=== PATIENT | female | born 1990 | race Caucasian/White ===

== ENCOUNTER 2020-12-07 08:32 | Observation (INO) ==
[2020-12-07] MEDS ORDERED: Ringers Solution, Lactated 1,000 ML IVC SCH (09:15)
[2020-12-07 09:21] VITALS: BP 124/72
== END 2020-12-08 05:00 | disposition home or self-care (01) ==
LOC: 1NENULAB
PROVIDERS: ADMIT Obstetrics & Gynecology; ATTEND Obstetrics & Gynecology

== ENCOUNTER 2021-02-18 12:42 | Inpatient (IN) ==
[~2021-02-18 12:42] MED LIST: *HR* Labetalol 20 MG/4 ML SYRINGE IVP PRN; *HR* Nalbuphine 10 MG/ML AMPUL IV PRN; Azithromycin 500 MG in 0.9 % Sodium Chloride 250 ML IVPB ONE; Famotidine 20 MG/2 ML VIAL IVP PRN; Lidocaine 1% 20 ML MDV INFILT PRN; Metoclopramide 10 MG/2 ML VIAL IVP PRN; Naloxone 0.4 MG/ML INJ IVP PRN; Ondansetron 4 MG/2 ML VIAL IVP PRN
[2021-02-18] MEDS ORDERED: Ringers Solution, Lactated 1,000 ML ONE (12:45)
[2021-02-18] MEDS ORDERED: Ropivacaine/PF 0.2% 20 ML VIAL EP ONE (12:47)
[2021-02-18] MEDS ORDERED: EPHEDrine 50 MG/ML VIAL IVP PRN (12:47)
[2021-02-18] MEDS ORDERED: *HR* FentaNYL (PF) 100 MCG/2 ML VIAL EP ONE (12:47)
[2021-02-18 12:49] LABS: Basophils # 0.1 K/mcL (0.0-0.2); Basophils % 0.6 %; Eosinophils # 0.3 K/mcL (0.0-0.6); Eosinophils % 2.5 %; Hematocrit 33.4 % (35.3-44.9); Hemoglobin 10.4 g/dL (11.5-15.4); Immature Granulocytes % 1.7 % (0-4); Lymphocytes # 2.2 K/mcL (0.6-4.6); Lymphocytes % 19.9 %; Mean Corpuscular HGB Conc 31.1 g/dL (31.6-35.5); Mean Corpuscular Hemoglobin 24.6 pg (28.0-33.3); Mean Corpuscular Volume 79.1 fL (83.0-100.0); Monocytes # 0.6 K/mcL (0.0-1.3); Monocytes % 5.7 %; Neutrophils # 7.5 K/mcL (1.6-8.9); Nucleated Red Blood Cells 0.6 /100 WBC (0); Platelet Count 262 K/mcL (140-400); Red Blood Count 4.22 M/mcL (3.82-4.97); Red Cell Distribution Width 14.2 % (11.5-14.5); Segmented Neutrophils % 69.6 %; White Blood Count 10.8 K/mcL (4.3-11.1)
[2021-02-18] MEDS ORDERED: *HR* FentaNYL (PF) 250 MCG/5 ML VIAL ONE (12:53)
[2021-02-18] MEDS ORDERED: Ropivacaine/PF 0.2% 20 ML VIAL ONE (12:53)
[2021-02-18 13:01] LABS: Creatinine,Urine 19 mg/dL; Protein/Creatinine Ratio,Urine 6.58 mg/mg (0.00-0.20)
[2021-02-18] MEDS: Ringers Solution, Lactated 1,000 ML IVC SCH ×2 (13:01→21:44)
[2021-02-18 13:05] LABS: Alanine Aminotransferase 14 Units/L (7-52); Aspartate Amino Transferase 18 Units/L (13-39); BUN/Creatinine Ratio 18 (6-26); Blood Urea Nitrogen 14 mg/dL (6-20); Lactate Dehydrogenase 199 Units/L (140-271); eGFR For African Americans > 60 (> 60); eGFR For Non-African Americans > 60 (> 60)
[2021-02-18] MEDS ORDERED: miSOPROStoL 25 MCG TABLET PO PRN (13:15)
[2021-02-18] MEDS: Magnesium Sulf 20 gm/SW 500mL 20 GM/500 ML IV.SOLN IVC SCH ×2 (13:23→21:46)
[2021-02-18 14:25] LABS: Influenza A PCR Negative (Negative); Influenza B PCR Negative (Negative); Resp. Syncytial Virus PCR Negative (Negative)
[2021-02-18 14:26] LABS: SARS-CoV-2 by PCR (In House) Negative (Negative)
[2021-02-18] MEDS ORDERED: Calcium Gluconate 1,000 MG/10 ML VIAL IVP PRN (15:06)
[2021-02-18 15:09] LABS: Amphetamine Screen,Urine Negative ng/mL (Cutoff=1000); Barbiturate Screen,Urine Negative ng/mL (Cutoff=200); Benzodiazepines Screen,Urine Negative ng/mL (Cutoff=200); Cannabinoid Screen,Urine Negative ng/mL (Cutoff = 50); Cocaine Screen,Urine Negative ng/mL (Cutoff= 300); Opiate Screen,Urine Negative ng/mL (Cutoff=300); Phencyclidine Screen,Urine Negative ng/mL (Cutoff=25)
[2021-02-18] MEDS: Acetaminophen 325 MG TABLET PO PRN (15:56)
[2021-02-18] MEDS ORDERED: Gentamicin 380 MG in 0.9 % Sodium Chloride 100 ML IVPB ONE (19:07)
[2021-02-18] MEDS ORDERED: Clindamycin 900 MG/50 ML 900 MG/50 ML IV.SOLN IVPB ONE (19:07)
[2021-02-18] MEDS ORDERED: Metoclopramide 10 MG/2 ML VIAL IVP ONE (19:07)
[2021-02-18] MEDS ORDERED: Famotidine 20 MG/2 ML VIAL IVP ONE (19:07)
[2021-02-18] MEDS ORDERED: EPHEDrine 50 MG/ML VIAL ONE (19:55)
[2021-02-18] MEDS ORDERED: *HR* FentaNYL (PF) 100 MCG/2 ML VIAL ONE (20:05)
[2021-02-18] MEDS ORDERED: Oxytocin 20 units/ LR 1000 mL 20 UNIT/1,000 ML BAG IVC SCH (20:30)
[2021-02-18] MEDS: Epidural Premix (fent/bupiv) 110 ML EP SCH (21:47)
[2021-02-19] MEDS: Epidural Premix (fent/bupiv) 110 ML EP SCH ×3 (02:28→21:41)
[2021-02-19] MEDS: Ringers Solution, Lactated 1,000 ML IVC SCH ×2 (02:28→09:23)
[2021-02-19] MEDS: Acetaminophen 325 MG TABLET PO PRN ×2 (06:30→14:30)
[2021-02-19] MEDS: miSOPROStoL 25 MCG TABLET VG SCH ×2 (09:23→14:30)
[2021-02-19 11:15] LABS: Hematocrit 31.1 % (35.3-44.9); Hemoglobin 9.7 g/dL (11.5-15.4); Mean Corpuscular HGB Conc 31.2 g/dL (31.6-35.5); Mean Corpuscular Hemoglobin 24.5 pg (28.0-33.3); Mean Corpuscular Volume 78.5 fL (83.0-100.0); Mean Platelet Volume 11.4 fL (9.4-12.4); Platelet Count 233 K/mcL (140-400); Red Blood Count 3.96 M/mcL (3.82-4.97); Red Cell Distribution Width 14.6 % (11.5-14.5); White Blood Count 10.3 K/mcL (4.3-11.1)
[2021-02-19 11:44] LABS: Alanine Aminotransferase 13 Units/L (7-52); Aspartate Amino Transferase 16 Units/L (13-39); Uric Acid 8.2 mg/dL (2.3-7.6); eGFR For African Americans > 60 (> 60); eGFR For Non-African Americans > 60 (> 60)
[2021-02-19] MEDS ORDERED: Metoclopramide 10 MG/2 ML VIAL IVP STA (14:43)
[2021-02-19] MEDS ORDERED: Acetaminophen IV 1,000 MG/100 ML BAG IVPB ONE (14:43)
[2021-02-19] MEDS: Magnesium Sulf 20 gm/SW 500mL 20 GM/500 ML IV.SOLN IVC SCH (15:19)
[2021-02-19] MEDS ORDERED: *HR* Labetalol 20 MG/4 ML SYRINGE IVP ONE (20:01)
[2021-02-20] MEDS ORDERED: Ondansetron 4 MG/2 ML VIAL ONE (01:08)
[2021-02-20] MEDS ORDERED: Chloroprocaine/PF 20 ML VIAL INFILT ONE (01:08)
[2021-02-20] MEDS ORDERED: Clindamycin 900 MG/50 ML 900 MG/50 ML IV.SOLN IVPB ONE (01:19)
[2021-02-20] MEDS ORDERED: Gentamicin 380 MG in 0.9 % Sodium Chloride 100 ML IVPB ONE (01:19)
[2021-02-20] MEDS ORDERED: Metoclopramide 10 MG/2 ML VIAL IVP ONE (01:19)
[2021-02-20] MEDS ORDERED: Famotidine 20 MG/2 ML VIAL IVP ONE (01:19)
[2021-02-20] MEDS ORDERED: *HR* Morphine Sulfate/PF 10 MG/10 ML AMPUL ONE (01:21)
[2021-02-20] MEDS ORDERED: Azithromycin 500 MG in 0.9 % Sodium Chloride 250 ML IVPB ONE (01:22)
[2021-02-20] MEDS ORDERED: Acetaminophen IV 1,000 MG/100 ML BAG IVPB ONE (01:24)
[2021-02-20] MEDS ORDERED: 0.9 % Sodium Chloride 1,000 ML IVC SCH ×2 (01:30→04:47)
[2021-02-20] MEDS ORDERED: EPHEDrine 50 MG/ML VIAL ONE ×2 (01:50)
[2021-02-20] MEDS ORDERED: Ondansetron 4 MG/2 ML VIAL IVP PRN ×2 (03:03→04:47)
[2021-02-20] MEDS ORDERED: *HR* OxyCODONE Immed Rel 5 MG TABLET PO PRN ×2 (03:03→04:47)
[2021-02-20] MEDS ORDERED: *HR* HYDROmorphone PF 0.5 MG/0.5 ML SYRINGE IVP PRN (03:03)
[2021-02-20] MEDS ORDERED: Lidocaine/EPI 1:200k 2% PF 20 ML VIAL ONE (03:14)
[2021-02-20] MEDS ORDERED: Acetaminophen 325 MG TABLET PO PRN (04:47)
[2021-02-20] MEDS ORDERED: Simethicone 80 MG TAB.CHEW PO PRN (04:47)
[2021-02-20] MEDS ORDERED: Naloxone 0.4 MG/ML INJ IVP PRN (04:47)
[2021-02-20] MEDS ORDERED: Calcium Gluconate 1,000 MG/10 ML VIAL IVP PRN (04:47)
[2021-02-20] MEDS ORDERED: Sennosides 8.6 MG TABLET PO PRN (04:47)
[2021-02-20] MEDS ORDERED: Metoclopramide 10 MG/2 ML VIAL IVP PRN (04:47)
[2021-02-20] MEDS: Magnesium Sulf 20 gm/SW 500mL 20 GM/500 ML IV.SOLN IVC SCH ×2 (05:52→15:17)
[2021-02-20] MEDS: Oxytocin 20 units/ LR 1000 mL 20 UNIT/1,000 ML BAG IVC SCH ×2 (05:52→15:18)
[2021-02-20] MEDS: Prenatal Vit/FA 1 EACH TABLET PO SCH (07:49)
[2021-02-20 08:54] LABS: Alanine Aminotransferase 13 Units/L (7-52); Aspartate Amino Transferase 24 Units/L (13-39); BUN/Creatinine Ratio 14 (6-26); Blood Urea Nitrogen 12 mg/dL (6-20); Lactate Dehydrogenase 395 Units/L (140-271); Uric Acid 8.2 mg/dL (2.3-7.6); eGFR For African Americans > 60 (> 60); eGFR For Non-African Americans > 60 (> 60)
[2021-02-20] MEDS ORDERED: NON-FORMULARY MEDICATION 1 EACH EACH (Prenat 115/Iron Fum/Folic/Dss [Prenatal 19 Tablet] 1 PO SCH (09:00)
[2021-02-20] MEDS: Ibuprofen 600 MG TABLET PO PRN ×2 (10:27→20:20)
[2021-02-20] MEDS: NIFEdipine XL (24 HR) 30 MG TAB.ER.24 PO SCH (22:21)
[2021-02-21] MEDS ORDERED: *HR* LORazepam 1 MG TABLET PO ONE (00:38)
[2021-02-21] MEDS: Magnesium Sulf 20 gm/SW 500mL 20 GM/500 ML IV.SOLN IVC SCH (00:48)
[2021-02-21 06:28] LABS: Basophils % 0.2 %; Eosinophils # 0.2 K/mcL (0.0-0.6); Eosinophils % 1.2 %; Hemoglobin 9.5 g/dL (11.5-15.4); Immature Granulocytes % 1.6 % (0-4); Lymphocytes # 1.3 K/mcL (0.6-4.6); Lymphocytes % 9.8 %; Mean Corpuscular HGB Conc 32.8 g/dL (31.6-35.5); Mean Corpuscular Hemoglobin 25.7 pg (28.0-33.3); Mean Corpuscular Volume 78.6 fL (83.0-100.0); Mean Platelet Volume 11.5 fL (9.4-12.4); Monocytes # 0.6 K/mcL (0.0-1.3); Monocytes % 4.7 %; Neutrophils # 10.8 K/mcL (1.6-8.9); Nucleated Red Blood Cells 0.6 /100 WBC (0); Platelet Count 232 K/mcL (140-400); Red Blood Count 3.69 M/mcL (3.82-4.97); Red Cell Distribution Width 14.7 % (11.5-14.5); Segmented Neutrophils % 82.5 %; White Blood Count 13.1 K/mcL (4.3-11.1)
[2021-02-21 06:59] LABS: Alanine Aminotransferase 14 Units/L (7-52); Aspartate Amino Transferase 24 Units/L (13-39); BUN/Creatinine Ratio 15 (6-26); Blood Urea Nitrogen 13 mg/dL (6-20); Lactate Dehydrogenase 428 Units/L (140-271); Uric Acid 9.1 mg/dL (2.3-7.6); eGFR For African Americans > 60 (> 60); eGFR For Non-African Americans > 60 (> 60)
[2021-02-21] MEDS: NIFEdipine XL (24 HR) 30 MG TAB.ER.24 PO SCH ×2 (07:40→23:03)
[2021-02-21] MEDS: Ibuprofen 600 MG TABLET PO PRN ×3 (07:40→23:03)
[2021-02-21] MEDS: Prenatal Vit/FA 1 EACH TABLET PO SCH (07:41)
[2021-02-21] MEDS ORDERED: NIFEdipine XL (24 HR) 30 MG TAB.ER.24 PO ONE (08:37)
[2021-02-22] MEDS ORDERED: *HR* Labetalol 20 MG/4 ML SYRINGE IVP ONE (01:03)
[2021-02-22] MEDS ORDERED: NIFEdipine XL (24 HR) 30 MG TAB.ER.24 PO ONE (02:15)
[2021-02-22 07:13] VITALS: BP 141/92
[2021-02-22] MEDS ORDERED: NIFEdipine XL (24 HR) 30 MG TAB.ER.24 PO SCH (09:00)
[2021-02-22] MEDS: Prenatal Vit/FA 1 EACH TABLET PO SCH (09:50)
[2021-02-22] MEDS: Ibuprofen 600 MG TABLET PO PRN (09:50)
[2021-02-22] MEDS: NIFEdipine XL (24 HR) 30 MG TAB.ER.24 PO SCH (09:50)
== END 2021-02-22 12:25 | disposition home or self-care (01) | DRG 788 ==
LOC: 1NENULAB → 1NENUOBS 02-20 05:30
PROVIDERS: ADMIT Obstetrics & Gynecology; ATTEND Obstetrics & Gynecology